=== PATIENT | female | born 1950 | race African-American/Black ===

== ENCOUNTER 2016-09-13 18:04 | Inpatient (IN) | payer MEDICARE ==
[~2016-09-13] VITALS: Ht 152.4 cm; Wt 92.3 kg
--- NOTE | ~2016-09-13 | OP ---
PATIENT NAME: SHERYL BO MEDICAL RECORD: [id number] :48 LOCATION:D.M2 D.2127 ADMISSION DATE:09/13/16 SURGEON: VLAD TORRES MD DATE OF OPERATION: 09/20/2016 PREOPERATIVE DIAGNOSES: End-stage renal disease and mechanical complication of right arm surgically-created arteriovenous fistula, dependent on hemodialysis POSTOPERATIVE DIAGNOSES: End-stage renal disease and mechanical complication of right arm surgically-created arteriovenous fistula, dependent on hemodialysis OPERATION PERFORMED: Ultrasound and fluoroscopic-guided insertion of a right internal jugular 19-cm HemoSplit tunneled dialysis catheter. SURGEON: Vlad Torres MD. ANESTHESIA: Monitoring per CIRCUS TRAIN SUPERVISOR and local 1% lidocaine. No peripheral IV could be obtained and so no sedation was given intraoperatively. Prophylactic antibiotic administration was delayed until after the TDC was implanted. DESCRIPTION OF PROCEDURE: In supine position, with the patient's head turned to her left, she was prepped and draped in a sterile manner. Ultrasound was used to locate the right internal jugular vein, which is of normal contour and compressibility with normal flow. The skin and subcutaneous tissues overlying and surrounding the area were infiltrated as necessary with lidocaine 1%. A small incision was made at the base of the neck and through that incision with ultrasound guidance, a micropuncture needle and wire were inserted directly into the internal jugular vein. Under fluoroscopy, the wire was exchanged for a larger wire and introducers and a 19-cm HemoSplit was chosen and inserted through a small skin incision a few centimeters beneath the clavicle. It was pulled through a subcutaneous tunnel up to the cervical wound and then inserted through a peel-away introducer. Its tip was placed appropriately in the right atrium under fluoroscopy. The catheter had no kinks or any other apparent complications on fluoroscopy and the catheter was accessed and both lumens aspirated and returned blood freely. The catheter was then flushed with saline and then hep-locked, clamped and capped. It was sutured to the skin near the entry site with 2-0 silk. The cervical incision was closed with interrupted inverted 3-0 Vicryl and Dermabond glue and the catheter entry site was sealed with Dermabond glue and dressed with a chlorhexidine and Biopatch. The cervical wound dressed with Maxorb Ag, Tegaderm and Cavilon skin prep. The patient was then taken to the recovery room in stable condition. She will have a chest x-ray done in the recovery room or on the floor. She can have dialysis today and resume all her usual medications and diet and be discharged when okay with nephrology. I recommend that we allow her fistula to rest for a week or two and then bring her back as an outpatient to the nephrology procedure center for a fistulogram and possible intervention. There was no blood loss during the procedure and all sponges, instruments, and needles were accounted for. No drain was used and no surgical specimen was submitted for histopathology. TRANSINT:[id number] Voice Confirmation ID: [id number] DOCUMENT ID: [id number] OPERATIVE REPORT [id number] SHERYL BO JAMES MD CC: JAMES APPIAH MD [id number] DICTATION DATE: 09/20/16 1053 POLE INCISOR OPERATOR: 09/20/16 1704 DIS IN 09/20/16 [facility] [address] [place] [address]
[~2016-09-13 18:04] MED LIST: BABY ASPIRIN81 MG PO; CARDURA1 MG PO; HYDROCODON-ACE1 EAC7 PO; LASIX40 MG PO; METOPROLOL TAR100 MG PO; NORVASC10 MG PO; RENA-VITE TABL0.8 MG PO; ZYLOPRIM100 MG PO
[2016-09-13] MEDS ORDERED: NEURONTIN 300300 MG PO (18:21)
[2016-09-13] MEDS ORDERED: SODIUM BICARBO650 MG PO (18:23)
[2016-09-13] MEDS ORDERED: FERROUS SULFAT325 MG PO (18:24)
[2016-09-13 18:45] LABS: BASOPHILS 0.5 % (0-2); EOSINOPHILS 5.7 % (0-7); HEMATOCRIT 22.7 % (36.0-48.0); IMMATURE GRANULOCYTES 0.4 % (0-5); LYMPHOCYTES 23.8 % (15-50); MCH 29.6 pg (26.0-34.0); MCHC 31.3 g/dL (31.0-37.0); MCV 94.6 fL (80.0-100.0); MEAN PLATELET VOLUME 10.7 fL (7.4-10.4); MONOCYTES 7.5 % (2-11); NEUTROPHILS 62.1 % (40-80); RDW 20.8 % (11.5-14.5); WBC 8.4 10x3/uL (4.8-10.8)
[2016-09-13 18:55] LABS: HEMOGLOBIN 7.1 g/dL (12-16); PLATELET COUNT 220 10x3/uL (130-400)
[2016-09-13 19:00] VITALS: BP 158/69
--- NOTE | 2016-09-13 19:27 | NUR ---
SHIFT ASSESSMENT COMPLETE. LUNG SOUNDS ARE DIMINISHED ALL LOBES WITH PATIENT DENIED SOB. CRITICAL LAB CALLED TO [facility] WITH RENALS. NEW ORDERS RECIEVED. PATIENT TO BE TYPE AND CROSSED FOR 2 UNITS PRBC'S. 20 GA SL TO THE THE L/WRIST WITH R/AVF FOR DIALYSIS ACCESS
--- NOTE | 2016-09-13 19:46 | NUR ---
CHEST X RAY COMPLETE WITH PATIENT BACK TO ROOM
[2016-09-13 19:48] LABS: CALCIUM 7.9 mg/dL (8.5-10.1); CARBON DIOXIDE 14.1 mmol/L (21.0-32.0); CREATININE - SERUM 9.5 mg/dL (0.6-1.3); POTASSIUM - SERUM 5.7 mmol/L (3.5-5.1)
[2016-09-13 19:49] LABS: ANION GAP 22.6 mmol/L (8-16)
--- NOTE | 2016-09-13 22:07 | NUR ---
ONE UNIT OF PRBC'S INFUSING ON PUMP DIRECTED VSS WITH NO DISTRESS
[2016-09-14] VITALS (8 sets, daily range): BP systolic 138–205; BP diastolic 63–84; Ht 152.4 cm; Wt 92.3 kg
--- NOTE | 2016-09-14 00:11 | NUR ---
BLOOD CONTINUES TO INFUSE WITH NO ADVERSE REACTION.
--- NOTE | 2016-09-14 00:52 | NUR ---
UNIT ONE OF TWO PRBC'S COMPLETE WITH NO ADVERSE REACTION NOTED NO DISTRESS. 80 MG IV LASIX GIVEN DIRECTED
--- NOTE | 2016-09-14 01:38 | NUR ---
VSS WITH CHEST PAIN DENIED. PATIENT DENIED SOB NO ADVERSE REACTION NOTED
[2016-09-14 06:57] LABS: BASOPHILS 0.4 % (0-2); EOSINOPHILS 5.7 % (0-7); IMMATURE GRANULOCYTES 0.4 % (0-5); LYMPHOCYTES 21.9 % (15-50); MCH 29.7 pg (26.0-34.0); MCHC 32.4 g/dL (31.0-37.0); MEAN PLATELET VOLUME 11.2 fL (7.4-10.4); MONOCYTES 6.7 % (2-11); NEUTROPHILS 64.9 % (40-80); PLATELET COUNT 216 10x3/uL (130-400); WBC 9.6 10x3/uL (4.8-10.8)
[2016-09-14 07:04] LABS: HEMATOCRIT 27.5 % (36.0-48.0); HEMOGLOBIN 8.9 g/dL (12-16); MCV 91.7 fL (80.0-100.0)
--- NOTE | 2016-09-14 07:23 | NUR ---
ASSESSMENT DONE. DENIES NEEDS.
[2016-09-14 07:29] LABS: ANION GAP 21.2 mmol/L (8-16); CALCIUM 7.9 mg/dL (8.5-10.1); CARBON DIOXIDE 14.6 mmol/L (21.0-32.0); CREATININE - SERUM 9.1 mg/dL (0.6-1.3); MAGNESIUM - SERUM 2.1 mg/dL (1.8-2.4); POTASSIUM - SERUM 5.8 mmol/L (3.5-5.1)
[2016-09-14 13:30] LABS: BASOPHILS 0.5 % (0-2); EOSINOPHILS 6.7 % (0-7); HEMATOCRIT 29.7 % (36.0-48.0); HEMOGLOBIN 9.5 g/dL (12-16); IMMATURE GRANULOCYTES 0.4 % (0-5); LYMPHOCYTES 21.9 % (15-50); MCH 29.7 pg (26.0-34.0); MCV 92.8 fL (80.0-100.0); MEAN PLATELET VOLUME 10.6 fL (7.4-10.4); MONOCYTES 5.3 % (2-11); NEUTROPHILS 65.2 % (40-80); PLATELET COUNT 212 10x3/uL (130-400); RDW 19.5 % (11.5-14.5); WBC 9.2 10x3/uL (4.8-10.8)
[2016-09-14 13:46] LABS: ANION GAP 24.1 mmol/L (8-16); CALCIUM 7.9 mg/dL (8.5-10.1); CARBON DIOXIDE 14.1 mmol/L (21.0-32.0); CREATININE - SERUM 9.2 mg/dL (0.6-1.3); POTASSIUM - SERUM 5.2 mmol/L (3.5-5.1)
[2016-09-14 13:51] LABS: CREATININE - URINE 66.3 mg/dL (30-125); PROTEIN - URINE 371.1 mg/dL (0.0-11.9)
[2016-09-14 14:00] LABS: APPEARANCE SLT CLOUDY (CLEAR); BACTERIA MANY /hpf (NONE SEEN); BILIRUBIN NEGATIVE (NEGATIVE); COLOR STRAW (YELLOW); GLUCOSE 100 mg/dL (NEGATIVE); KETONE NEGATIVE (NEGATIVE); LEUKOCYTE ESTERASE TRACE (NEGATIVE); MUCUS <1+ /lpf (NONE SEEN); NITRITE NEGATIVE (NEGATIVE); PROTEIN 3+ mg/dL (NEGATIVE); RED CELLS - URINE 0-5 /hpf (0-5); SPECIFIC GRAVITY 1.015 (1.005-1.020); UROBILINOGEN NORMAL (NORMAL); WHITE CELLS - URINE 0-5 /hpf (0-5)
--- NOTE | 2016-09-14 17:51 | NUR ---
WITHOUT CHANGES OR DISTRESS NOTED AT THIS TIME. DENIES NEEDS.
--- NOTE | 2016-09-14 19:26 | NUR ---
SHIFT ASSESSMENT COMPLETE WITH NO C/O OF PAIN OR NEEDS. LUNG SOUNDS ARE DIMINISHED WITH O2 AT 2 LITERS NASAL. R AVF WITH BRUITT AND THRILL NOTED. NS INFUSING ON PUMP AT 10 CC/HR TO IV IN THE L/WRIST DRESSING CDI. WILL MONITOR
--- NOTE | 2016-09-15 00:04 | NUR ---
2030 ORAL MEDICATION GIVEN WITH SIPS OF WATER. PAIN IS RATED AT 9 ON SCALE TO BACK WITH REQUEST FOR PAIN MED. NORCO GIVEN ORDERED 0005 NO DISTRESS NOTED PATIENT IS RESTING QUIETLY
--- NOTE | 2016-09-15 02:31 | NUR ---
SLEEPING QUIETL WITH NO DISTRESS NOTED CALL LIGHT IN REACH
[2016-09-15 04:24] VITALS: BP 164/75
[2016-09-15 06:20] LABS: BASOPHILS 0.4 % (0-2); EOSINOPHILS 6.4 % (0-7); HEMATOCRIT 27.7 % (36.0-48.0); HEMOGLOBIN 8.9 g/dL (12-16); IMMATURE GRANULOCYTES 0.5 % (0-5); LYMPHOCYTES 24.4 % (15-50); MCH 29.8 pg (26.0-34.0); MCHC 32.1 g/dL (31.0-37.0); MCV 92.6 fL (80.0-100.0); MEAN PLATELET VOLUME 10.6 fL (7.4-10.4); MONOCYTES 6.5 % (2-11); NEUTROPHILS 61.8 % (40-80); PLATELET COUNT 198 10x3/uL (130-400); RBC 2.99 10x6/uL (4.00-5.40); RDW 19.5 % (11.5-14.5); WBC 9.6 10x3/uL (4.8-10.8)
[2016-09-15 06:35] LABS: % SATURATION 14 % (15-55); IRON 34 ug/dl (35-150); TOTAL IRON BIND CAPACITY 241 ug/dl (260-445); UNSAT IRON BIND CAPACITY 207 ug/dl (150-375)
[2016-09-15 06:36] LABS: HEMOGLOBIN A1C 5.8 % (4.8-6.0)
[2016-09-15 07:14] LABS: ANION GAP 22.7 mmol/L (8-16); CALCIUM 7.8 mg/dL (8.5-10.1); CARBON DIOXIDE 14.7 mmol/L (21.0-32.0); CREATININE - SERUM 9.3 mg/dL (0.6-1.3); PHOSPHOROUS 8.1 mg/dL (2.5-4.9); POTASSIUM - SERUM 5.4 mmol/L (3.5-5.1); URIC ACID 5.9 mg/dL (2.6-7.2)
--- NOTE | 2016-09-15 07:30 | NUR ---
RECEIVED PT IN BED EYES CLOSED RESP UNLABORED NAD NOTED
[2016-09-15 08:13] VITALS: BP 178/76
[2016-09-15 13:24] VITALS: BP 148/52
[2016-09-15 17:06] VITALS: BP 156/68
--- NOTE | 2016-09-15 19:23 | NUR ---
SHIFT ASSESSMENT COMPLETE. PATIENT DENIED PAIN OR NEEDS A THIS TIME. SALINE LOCK TO THE L/WRIST WITH DRESSING CDI. R AVF WITH BRUIT AND THIRLL NOTED. ORDERS FOR ORDC IN AM WILL MONITOR
[2016-09-15 19:45] VITALS: BP 164/72
--- NOTE | 2016-09-15 21:00 | NUR ---
ORAL MEDICATION GIVEN WITH SIPS OF WATER. L/WRIST SL FLUSHED WITH INFILTRATION NOTED. REMOVED WITH DRESSING APPLIED
--- NOTE | 2016-09-15 22:07 | NUR ---
PIV RESTARTED TO THE L/FORARM WITH 20 GA DRESSING APPLIED.
[2016-09-15 23:38] VITALS: BP 163/71
--- NOTE | 2016-09-16 02:38 | NUR ---
SLEEPING QUIETLY WITH NO DISTRESS. CALL LIGHT IN REACH
[2016-09-16 03:48] VITALS: BP 168/73
[2016-09-16 05:46] LABS: BASOPHILS 0.5 % (0-2); EOSINOPHILS 5.8 % (0-7); HEMATOCRIT 27.5 % (36.0-48.0); HEMOGLOBIN 8.7 g/dL (12-16); IMMATURE GRANULOCYTES 0.7 % (0-5); LYMPHOCYTES 23.3 % (15-50); MCH 29.3 pg (26.0-34.0); MCHC 31.6 g/dL (31.0-37.0); MCV 92.6 fL (80.0-100.0); MEAN PLATELET VOLUME 10.1 fL (7.4-10.4); MONOCYTES 7.7 % (2-11); PLATELET COUNT 196 10x3/uL (130-400); RBC 2.97 10x6/uL (4.00-5.40); RDW 19.2 % (11.5-14.5); WBC 10.4 10x3/uL (4.8-10.8)
[2016-09-16 06:10] LABS: ANION GAP 21.1 mmol/L (8-16); CARBON DIOXIDE 15.1 mmol/L (21.0-32.0); CREATININE - SERUM 9.8 mg/dL (0.6-1.3); POTASSIUM - SERUM 5.2 mmol/L (3.5-5.1)
--- NOTE | 2016-09-16 07:30 | NUR ---
RECEIVED PT IN BED EYES CLOSED RESP UNLABORED NAD NOTED
[2016-09-16 08:19] VITALS: BP 154/67
--- NOTE | 2016-09-16 13:39 | EC ---
PATIENT:SHERYL BO DATE OF SERVICE: 09/13/16 SEX: F MEDICAL RECORD: [id number] DATE OF : [birth year] LOCATION:D.M2 D.212 AGE OF PATIENT: 65 ADMISSION DATE: 09/13/16 REFERRING PHYSICIAN: INTERPRETING PHYSICIAN: CORNELIO LIMA MD ECHOCARDIOGRAM REPORT ECHO CHARGES 4 ECHO COMPLETE CLINICAL DIAGNOSIS: FLUID OVERLOAD ECHOCARDIOGRAPHIC MEASUREMENTS (adult normal given) AC root (d.<3.7cm) 2.4 LV Septum d (<1.2 cm> 1.4 Valve Excursion 1.8 LV Septum (systole) 1.9 Left Atria (s.<4.0cm> 4.7 LVPW d(<1.2cm) 1.2 RV (d.<2.3cm) 2.3 LVPW (sytole) 1.9 LV diastole(<5.6CM) 5.1 MV E-F(>70mm/sec) LV systole 3.1 LVOT Diameter 1.7 MV exc.(>10mm) Est.ejection fraction (50-75%) Pericardial Effusion Y DOPPLER: LVIT A 98.0 E 195.0 LA RVSP 73.2 LVOT 105 AOP1/2T Asc. Ao 242 RVOT 83.0 RA PA 100 AV Gradient Peak 23.4 AV Mean 11.0 AV Area 1.1 MV Gradient Peak 15.0 MV Mean 4.3 MV Area COMMENTS: Dynamics Ax Developer: Jack FUCHSOE Meat Grading Machine Operator:Panda Cardenas TAPE# PACS DATE OF SERVICE: 09/14/2016 Adequate 2D echo, color flow, spectral Doppler and M-Mode. Borderline LVH. LV internal dimensions are normal. Wall motion ____. LV appears mildly globally hypo with EF at lower limits of normal, mildly reduced at 45-50%. Aortic valve sclerosis without stenosis by Doppler interrogation. The left atrium is dilated at 4.7 cm. Mitral valve is thickened. Moderate MR. Right-sided chamber is grossly normal. Moderate TR. TRANSINT:[id number] Voice Confirmation ID: [id number] DOCUMENT ID: [id number] ECHOCARDIOGRAM REPORT [id number] SHERYL BO 09/16/2016 Edited to correct date of service, dmm. CORNELIO LIMA MD at 4585 CC: [id number] DICTATION DATE: 09/15/16 0937 ROR ENGINEER: 09/15/16 1100 ADM IN [facility] [address] [place] [id number]
--- NOTE | 2016-09-16 15:09 | NUR ---
DIALYSIS COORDINATOR: PATHWAYS: Notified of patient need OPHD placement. Spoke with patient via phone for RACHEL. Patient confirmed [facility]. Medical records forwarded to [facility] Admissions for OPHD placement per orders. Will update CM as placement process progresses. DEWEY SIMMS.
[2016-09-16 16:05] VITALS: BP 173/76
--- NOTE | 2016-09-16 19:51 | NUR ---
ASSESSMENT COMPLETE, A&O, IN BVED WATCHING TV. IV TO LEFT WRIST WITH NS AT KVO, SITE CLEAN AND DRY. 02 AT 2 LITERS VIA NC, RESPEATIONS EVEN, NON LABORED. SMALL DRSG NOTED TO RIGHT ARM COVERING AVF (+,+). PT DENIES PAIN OR NEEDS, BED LOW, CL IN REACH.
[2016-09-16 20:12] VITALS: BP 130/82
--- NOTE | 2016-09-16 20:57 | NUR ---
HS MEDS GIVEN WITH FRESH ICE WATER. PT DENIES PAIN OR NEEDS, BED LOW, CL IN REACH.
[2016-09-16 23:40] VITALS: BP 162/69
--- NOTE | 2016-09-17 01:28 | NUR ---
RESTING WITH EYES CLOSED, RESPERATIONS EVEN, NO S/S DISTRESS NOTED.
[2016-09-17 03:31] VITALS: BP 168/68
--- NOTE | 2016-09-17 04:00 | NUR ---
CHICK SEXER AT BEDSIDE FOR VS. NEEDS ADDRESSED AT THIS TIME. CALL LIGHT IN REACH. WILL CONT TO MONITOR.
[2016-09-17 06:17] LABS: BASOPHILS 0.4 % (0-2); EOSINOPHILS 5.1 % (0-7); HEMATOCRIT 26.5 % (36.0-48.0); HEMOGLOBIN 8.6 g/dL (12-16); IMMATURE GRANULOCYTES 0.5 % (0-5); LYMPHOCYTES 17.8 % (15-50); MCH 29.8 pg (26.0-34.0); MCHC 32.5 g/dL (31.0-37.0); MCV 91.7 fL (80.0-100.0); MEAN PLATELET VOLUME 10.7 fL (7.4-10.4); MONOCYTES 8.8 % (2-11); NEUTROPHILS 67.4 % (40-80); PLATELET COUNT 185 10x3/uL (130-400); RBC 2.89 10x6/uL (4.00-5.40); RDW 18.8 % (11.5-14.5); WBC 9.8 10x3/uL (4.8-10.8)
[2016-09-17 06:30] LABS: CALCIUM 7.7 mg/dL (8.5-10.1)
[2016-09-17 06:34] LABS: ANION GAP 15.6 mmol/L (8-16); CARBON DIOXIDE 23.3 mmol/L (21.0-32.0); CREATININE - SERUM 7.1 mg/dL (0.6-1.3); POTASSIUM - SERUM 3.9 mmol/L (3.5-5.1)
--- NOTE | 2016-09-17 07:16 | NUR ---
PT SITTING UP IN BED SLEEPING NO S/S DISTRESS NOTED. RR EVEN AND REGULAR WILL CONT TO MONITOR
[2016-09-17 08:00] VITALS: BP 177/73
[2016-09-17 12:03] VITALS: BP 154/65
[2016-09-17 12:17] LABS: HEPATITIS C ANTIBODY <0.1 (0.0-0.9)
--- NOTE | 2016-09-17 14:29 | NUR ---
PT PIV HAS INFILTRATED. DC WITH CATH TIP INTACT. ASSESSED PT TO LOOK FOR IV ACCESS, DID NOT SEE/FEEL ANY ACCESSABLE VEINS. CALLED ROCIO AMBROSE ACCESS, SHE WILL HEAD THIS WAY SOON
--- NOTE | 2016-09-17 15:17 | NUR ---
IV ACCESS-22 GAUGE INSERTED IN LEFT UPPER ARM FOR ACCESS. ROCIO KINSEY RN
[2016-09-17 16:00] VITALS: BP 150/59
--- NOTE | 2016-09-17 16:19 | NUR ---
Patient Name: SHERYL BO Admission Status: Elective Accout number: [id number] Admission Date: 09-13-2016 : 1950 Admission Diagnosis:SHORTNESS OF BREATH Attending: DAILY Current LOS: 4 Anticipated DC Date: Planned Disposition: Home Primary Insurance: [employer] MEDICARE ADV Discharge Planning Comments: * Is the patient Alert and Oriented? Yes 0 * How many steps to enter\exit or inside your home? 3 0 * PCP DR. CAROL SULTANA, [place] 0 * Pharmacy [facility] IN [place] 0 * Preadmission Environment Home with Family 0 * ADLs Independent 0 * Equipment None 0 * Other Equipment [place] [employer] - MEDICAL EQUIPMENT PROVIDER PREFERENCE 0 * List name and contact numbers for known caregivers / representatives who currently or will assist patient after discharge: ALESSANDRO BO, DTR, 0 * Community resources currently utilized None 0 * Please name any agencies selected above. NONE 0 * Additional services required to return to the preadmission environment? Yes * Can the patient safely return to the preadmission environment? Yes 0 * Has this patient been hospitalized within the prior 30 days at any hospital? No 0 CMREVIEWED CHART, PATIENT PATHWAYS COORDINATOR NOTE REFLECTS THAT OUTPATIENT DIALYSIS CLINIC ARRANGEMENT HAS BEEN REQUESTED. CM MET WITH PT IN ROOM TO DISCUSS DISCHARGE PLANNING AND NEEDS. PT REPORTS LIVING AT HOME INDEPENDENTLY; PT'S DAUGHTER LIVES WITH PT. PT HAS NO MEDICAL EQUIPMENT AND NO OUTSIDE SERVICES ASSISTING IN THE HOME. CM DISCUSSED AVAILABILITY OF HOME HEALTH, REHAB SERVICES AND MEDICAL EQUIPMENT. PT HAS FAMILY TO ASSIST WITH DIALYSIS TRANSPORTATION THREE DAYS PER WEEK IF NEEDED. PT WOULD LIKE CLINIC IN [place]. PT DENIES DISCHARGE NEEDS, REPORTS HER DAUGHTER WILL PICK HER UP FOR DISCHARGE HOME. IMPORTANT MESSAGE FROM MEDICARE PROVIDED AND EXPLAINED. CM WAITING OUTPATIENT HEMODIALYSIS CLINIC SCHEDULE / ARRANGEMENT COMPLETION. CM TO FOLLOW AND ASSIST NEEDED. Wallpaper Scraper: Alberto Miranda
--- NOTE | 2016-09-17 18:21 | NUR ---
PT SITTING UP IN BED DENIES NEEDS. EMPTIED BSC.
--- NOTE | 2016-09-17 19:19 | NUR ---
RESUMED CARE OF PT, LYING IN BED RESPIRATIONS EVEN AND UNLABORED ON 2LPM VIA NC. LEFT AC SALINE LOCKED. CALL LIGHT IN REACH. WILL CONTINUE TO MONITOR. SEE NURSE ASSESSMENT.
[2016-09-17 20:00] VITALS: BP 154/67
[2016-09-18] VITALS: BP 148/62
--- NOTE | 2016-09-18 01:03 | NUR ---
LYING IN BED WITH EYES CLOSED, CALL LIGHT IN REACH. WILL CONTINUE TO MONITOR.
--- NOTE | 2016-09-18 03:37 | NUR ---
CIRCUS RIDER AT BEDSIDE TO OBTAIN VITALS, WILL CONTINUE WITH PLAN OF CARE.
[2016-09-18 04:00] VITALS: BP 145/65
[2016-09-18 06:09] LABS: ANION GAP 17.3 mmol/L (8-16); CALCIUM 7.8 mg/dL (8.5-10.1); CARBON DIOXIDE 23.1 mmol/L (21.0-32.0); CREATININE - SERUM 7.8 mg/dL (0.6-1.3); POTASSIUM - SERUM 4.4 mmol/L (3.5-5.1)
[2016-09-18 06:22] LABS: BASOPHILS 0.5 % (0-2); EOSINOPHILS 3.8 % (0-7); HEMATOCRIT 27.1 % (36.0-48.0); HEMOGLOBIN 8.7 g/dL (12-16); IMMATURE GRANULOCYTES 0.7 % (0-5); LYMPHOCYTES 18.3 % (15-50); MCH 29.6 pg (26.0-34.0); MCHC 32.1 g/dL (31.0-37.0); MCV 92.2 fL (80.0-100.0); MEAN PLATELET VOLUME 10.6 fL (7.4-10.4); MONOCYTES 8.5 % (2-11); NEUTROPHILS 68.2 % (40-80); PLATELET COUNT 198 10x3/uL (130-400); RBC 2.94 10x6/uL (4.00-5.40); RDW 18.7 % (11.5-14.5); WBC 11.5 10x3/uL (4.8-10.8)
--- NOTE | 2016-09-18 07:24 | NUR ---
PT LAYING TO LEFT SIDE SLEEPING RR EVEN AND UNLABORED. NO S/S DISTRESS NOTED WILL CONT TO MONITOR
[2016-09-18 08:00] VITALS: BP 142/52
--- NOTE | 2016-09-18 09:10 | NUR ---
PT IN LEFT TILT POSITION. PHYSICAL ASSESSMENT DONE SEE SHIFT ASSESSMENT. LUNG SOUNDS DIMINISHED IN LEFT LOBES. [address] VIA NC AT 1L/MIN. SALINE LOCK NOTED IN LEFT UPPER ARM. SITE CLEAN, DRY, AND INTACT; FLUSHES EASILY. FISTULA NOTED IN RIGHT ARM; THRILL AND BRUIT NOTED. BRUISING NOTED ABOVE FISTULA. PT DENIES PAIN AT SITE. GENERALIZED EDEMA NOTED IN HANDS BILATERALLY; 2+ PITTING EDEMA NOTED IN LOWER EXTREMETIES BILATERALLY. PT REPORTS PAIN IN LEFT FOOT AND STATES, " IT IS ALWAYS THERE, BUT IT IS HURTING MORE THAN USUAL".
--- NOTE | 2016-09-18 09:13 | NUR ---
PT RATES PAIN 6/10 IN FOOT AND REQUESTS PAIN MEDICINE. NORCO 5/325MG GIVEN PO. PT DENIES FURTHER NEEDS AT THIS TIME.
--- NOTE | 2016-09-18 11:10 | NUR ---
PT BACK TO ROOM. PT REPORTS THAT THEY WERE UNABLE TO SUCCESSFULLY ACCESS HER FISTULA FOR DIALYSIS AND THAT THEY PLAN TO TRY AGAIN TOMORROW MORNING. PT IN LEFT TILT POSITION. PT RATES PAIN 4/10 IN LEFT FOOT AND DENIES FURTHER NEEDS AT THIS TIME.
[2016-09-18 12:00] VITALS: BP 126/64
--- NOTE | 2016-09-18 12:38 | NUR ---
Nutrition follow-up: Diet: Renal PO intake ~75% average of meals Labs reviewed +BM Unable to dialysis today due to inability to access fistula Wt: 206# RDN following.
--- NOTE | 2016-09-18 13:10 | NUR ---
PT IN SEMI FOWLERS POSITION RESTING WITH EYES CLOSED. RESP. 18BREATHS PER MIN. NO DISTRESS NOTED AT THIS TIME.
--- NOTE | 2016-09-18 15:30 | NUR ---
PT IN SEMI FOWLERS POSITION WATCHING TV. PT DENIES PAIN AND REQUESTS A CUP OF ICE. ICE PROVIDED.
[2016-09-18 16:22] VITALS: BP 148/67
--- NOTE | 2016-09-18 17:05 | NUR ---
DIALYSIS COORDINATOR: PATHWAYS: Patient has been accepted by [facility] on a Thursday//Thursday at 10:45am schedule. (Arrival time @ 10:30am) She will neeed to be there @ 10:15 for first appointment at 10:15am. She CANNOT start on a Thursday. Tentative start date is September 23, @ 10:15 am. Welcome Letter faxed to Ar[facility].
--- NOTE | 2016-09-18 17:35 | NUR ---
PT SITTING UP IN BED SLEEPING RR EVEN AND UNLABORED. NO S/S DISTRESS NOTED. IV IRON IS COMPLETE FLUSHED PIV AND SALINE LOCKED. GIVEN IV LASIX.
[2016-09-18 20:00] VITALS: BP 162/64
--- NOTE | 2016-09-18 20:00 | NUR ---
PT RESTING WITH EYES CLOSED. RESPS EVEN/NONLABORED WITH O2 @ 1L/NC. PIV TO DARWIN SALINE LOCKED. RESERVE RIGHT ARM FOR AVF. SEE SHIFT ASSESSMENT. CPOC.
--- NOTE | 2016-09-18 22:39 | NUR ---
HS MEDS GIVEN + PAIN PILL TO PROMOTE COMFORT. MONITOR AND CPOC.
[2016-09-19] VITALS: BP 136/60
--- NOTE | 2016-09-19 02:33 | NUR ---
RESTING IN BED WITH NO DISTRESS. RESPS EVEN/NONLABORED. CPOC.
[2016-09-19 04:00] VITALS: BP 151/69
[2016-09-19 05:46] LABS: BASOPHILS 0.3 % (0-2); EOSINOPHILS 3.3 % (0-7); HEMATOCRIT 28.4 % (36.0-48.0); HEMOGLOBIN 9.1 g/dL (12-16); IMMATURE GRANULOCYTES 0.8 % (0-5); LYMPHOCYTES 18.3 % (15-50); MCH 29.8 pg (26.0-34.0); MCV 93.1 fL (80.0-100.0); MEAN PLATELET VOLUME 10.8 fL (7.4-10.4); MONOCYTES 7.4 % (2-11); NEUTROPHILS 69.9 % (40-80); PLATELET COUNT 217 10x3/uL (130-400); RBC 3.05 10x6/uL (4.00-5.40); WBC 12.9 10x3/uL (4.8-10.8)
[2016-09-19 06:03] LABS: ANION GAP 18.7 mmol/L (8-16); CALCIUM 8.6 mg/dL (8.5-10.1); CARBON DIOXIDE 22.7 mmol/L (21.0-32.0); CREATININE - SERUM 8.3 mg/dL (0.6-1.3); POTASSIUM - SERUM 4.4 mmol/L (3.5-5.1)
--- NOTE | 2016-09-19 07:27 | NUR ---
PT LAYING DOWN IN BED SLEEPING RR EVEN AND UNLABORED NO S/S DISTRESS NOTED WILL CONT TO MONITOR
[2016-09-19 08:04] VITALS: BP 144/62
--- NOTE | 2016-09-19 11:59 | NUR ---
DIALYSIS CALLED, PT WAS UNABLE TO DIALYZE AGAIN. VENOUS LINE CLOTS/INFILTRATES WHEN THEY TRY AND USE IT. DR ESTRADA WAS IN DIALYSIS WHEN PT WAS THERE AND FISTULA WAS CLOTTING. DR ESTRADA TOLD PT SHE MAY NEED HEMOSPLIT/TRIALYSIS PLACEMENT TO LET FISTULA HEAL A LITTLE LONGER.
[2016-09-19 16:00] VITALS: BP 163/69
--- NOTE | 2016-09-19 16:48 | NUR ---
Patient Name: SHERYL BO Encounter No: [id number] : 1950 Primary Insurance: [employer] MEDICARE ADV Anticipated DC Date: Planned Disposition: Home DCP follow-up note: CM RECEIVED PT'S WELCOME LETTER TO OUTPATIENT DIALYSIS UNIT [facility] 1045AM, FIRST APPOINTMENT AT 1015AM ON THURSDAY OR THURSDAY. CM PROVIDED WELCOME LETTER AND PATIENT PATHWAYS BOOKLET TO PT. PT IS STILL HOPEFUL SHE WILL GET TO GO HOME THIS WEEKEND TO START OUTPATIENT DIALYSIS ON THURSDAY IN [place]. PT DENIES FURHTER DISCHARGE NEEDS AT THIS TIME. FAMILY TO TRANSPORT HOME. IMPORTANT MESSAGE FROM MED[employer]ARE PROVIDED AND EXPLAINED. Alberto Miranda, CASE MANAGEMENT
--- NOTE | 2016-09-19 17:17 | NUR ---
PT SITTING UP IN BED DENIES NEEDS
--- NOTE | 2016-09-19 20:00 | NUR ---
PT RESTING IN BED. ROUSES TO WITH NO DISTRESS. RESPS EVEN/NONLABORED. SEE SHIFT ASSESSMENT. CPOC.
[2016-09-19 20:56] VITALS: BP 160/77
[2016-09-20 00:42] VITALS: BP 150/74
--- NOTE | 2016-09-20 01:32 | NUR ---
RESTING IN BED. NO DISTRESS. EYES CLOSED. RESPS EVEN/NONLABORED. CPOC.
--- NOTE | 2016-09-20 04:30 | NUR ---
PT HAS REMAINED NPO SINCE MIDNIGHT FOR REVISION OF FISTULA PER DR TORRES TODAY.
--- NOTE | 2016-09-20 04:55 | NUR ---
AM LABS COLLECTED BY VENIPUNCTURE. ADMINISTERED IV LASIX 80MG SIVP. PT NPO FOR SURGERY TODAY.
[2016-09-20 05:37] LABS: BASOPHILS 0.2 % (0-2); EOSINOPHILS 1.7 % (0-7); HEMOGLOBIN 8.8 g/dL (12-16); IMMATURE GRANULOCYTES 0.4 % (0-5); MCH 30.1 pg (26.0-34.0); MCHC 32.6 g/dL (31.0-37.0); MCV 92.5 fL (80.0-100.0); MEAN PLATELET VOLUME 10.9 fL (7.4-10.4); MONOCYTES 5.4 % (2-11); NEUTROPHILS 78.3 % (40-80); PLATELET COUNT 216 10x3/uL (130-400); RBC 2.92 10x6/uL (4.00-5.40); RDW 18.8 % (11.5-14.5)
[2016-09-20 05:40] LABS: WBC 18.1 10x3/uL (4.8-10.8)
[2016-09-20 05:55] LABS: ANION GAP 17.9 mmol/L (8-16); CALCIUM 8.3 mg/dL (8.5-10.1); CARBON DIOXIDE 22.2 mmol/L (21.0-32.0); CREATININE - SERUM 8.9 mg/dL (0.6-1.3); MAGNESIUM - SERUM 1.5 mg/dL (1.8-2.4); PHOSPHOROUS 6.1 mg/dL (2.5-4.9); POTASSIUM - SERUM 4.1 mmol/L (3.5-5.1)
--- NOTE | 2016-09-20 07:36 | NUR ---
0722-AM ROUNDING DONW WITH PATIENT LAYING ON LEFT SIDE, APPEARS TO BE ASLEEP. RESP ARE EVEN AND NON LABORED. NPO FOR SURGERY TODAY. RESERVE RIGHT ARM. PERMITS ARE SIGNED FOR TODAY. WILL CPOC.
[2016-09-20 08:00] VITALS: BP 145/69
--- NOTE | 2016-09-20 08:45 | NUR ---
TRIED TO CALL SURGERY HOLDING AND RECOVERY TO LET THEM KNOW THAT I AM GIVING THE LOPRESSOR (BETA BLOVKER) AND R/T BLOOD PRESSURE, NO ANSWER. WILL TRY AND CATCH THEM ON THE FLOOR ON PICKUP.
--- NOTE | 2016-09-20 09:13 | NUR ---
0853-TO OR VIA BED.
[2016-09-20 10:16] VITALS: BP 146/76
--- NOTE | 2016-09-20 10:17 | NUR ---
1011-RETURNS FROM OR WITH RIGHT CHEST HEMISPLIT SEEN WITH NS INFUSING SLOWING PER GRAVITY. DRESSING IS CDI, I WENT AHEAD AND PLACED THE DATE FOR TODAY ON IT. DENIES NEEDS. WILL CPOC.
[2016-09-20 12:00] VITALS: BP 133/66
--- NOTE | 2016-09-20 13:24 | NUR ---
VISITING WITH FAMILY, JULIO CESARS NEEDS AT PRESENT TIME. WILL BE HAVING ROOM DIALYSIS SHORTLY THEN DISCHARGE.
--- NOTE | 2016-09-20 14:39 | NUR ---
PATIENT IS RECEIVING IN ROOM DIALYSIS AT THIS TIME. WILL CONTINUE TO FOLLOW AND ASSESS OFTEN.
--- NOTE | 2016-09-20 14:47 | NUR ---
INFORMED PATIENT THAT AFTER DIALYSIS, SHE CAN BE DISCHARGED. I ASKED HER IF SHE NEEDED TO CALL HER DAUGHTER TO GIVE HER A "HEADS UP" SINCE SHE IF FROM [place] ALSO. SHE REPLIED, "NO".
[2016-09-20 16:24] VITALS: BP 161/73
--- NOTE | 2016-09-20 16:43 | NUR ---
DOING WELL WITH DIALYSIS. SERGIO WITH DIALYSIS STATES THAT SHE HAS APPROX 1 1/2 HRS LEFT. PATIENT HAS REFUSED TO EAT SUPPER, WILL NOT GIVE RENVELA.
--- NOTE | 2016-09-20 17:35 | NUR ---
STILL RECEIVING DIALYSIS. NO RIDE HERE YET, PATIENT STATES SHE WILL BE HERE.
--- NOTE | 2016-09-20 19:22 | NUR ---
LEFT UPPER ARM IV REMOVED WITH CATH TIP INTACT. DRESING APPLIED. PT LILIAM WELL. DISCHARGE INSTRUCTIONS GIVEN. SIGNED COPY PLACED ON CHART. PT PREPARES FOR DISMISSAL. WILL GO VIA WC TO PERSONAL AUTO ACCOMPANIED BY FAMILY MEMBER.
== END 2016-09-20 19:42 | disposition home or self-care (01) | DRG 682 ==
LOC: D.M2 18:04
PROVIDERS: ADMIT Internal Medicine
DX: I12.0 Hypertensive chronic kidney disease with stage 5 chronic kidney disease or end stage renal disease (principal); N18.6 End stage renal disease; N17.9 Acute kidney failure, unspecified; D64.9 Anemia, unspecified; E87.5 Hyperkalemia; I51.7 Cardiomegaly; M10.9 Gout, unspecified; N25.0 Renal osteodystrophy